=== PATIENT | male | born 1940 | race Caucasian/White ===

== ENCOUNTER 2017-06-17 22:01 | Inpatient (IN) | payer MEDICARE, MEDICAID ==
[~2017-06-17] VITALS: Ht 175.2 cm; Wt 105.7 kg
--- NOTE | ~2017-06-17 | DS ---
[place], [place] DISCHARGE SUMMARY [id number] UNIT #: [id number] ROOM: 311 DOCTOR: DELANO ROLDAN MD BIRTHDATE: [birth year] DOS: 06/25/2017 CHIEF COMPLAINT: "I would like a please." HISTORY OF PRESENT ILLNESS: This is a 76-year-old white male sent to the [facility] from [place] following medical clearance at [facility]. The patient has been increasingly combative, very paranoid and psychotic. He has required both chemical and physical restraint to prevent harm to self and others. The patient has a history of dementia and has been increasingly more confused and resistive to care. He has been yelling out. He has been hitting things and banging on things. When attempted to redirect that, he will strike out. He will hit, kick, spit at staff. He is admitted now to rule out organic factors, to stabilize on medication, returning back to [place] when psychiatrically stable. PAST MEDICAL HISTORY: Remarkable for the history of Alzheimer dementia as well as diabetes, hypertension, GERD and hypothyroidism. SUMMARY OF HOSPITAL COURSE: The patient was admitted to the unit where he was initially started on Depakote as well as Exelon patch and Namenda. The Exelon patch was started at 4.6 mg a day while Namenda was started at 5 mg a day. Both of these were rapidly titrated up to their maximum doses, so the Exelon was gradually brought up to 13.3 mg a day while Namenda was brought to 10 mg twice a day. It became evident that Depakote was ineffective at decreasing his symptomatology. He continued to be paranoid and delusional. He continued to strike out at staff and at others. For this reason, Depakote was ultimately discontinued in lieu of Risperdal M-Tab first at 1 mg twice daily, then at 2 mg twice daily. This medication did seem to impact positively on his behavior as his mood lability lessened, his physical and verbal aggression lessened and his paranoia and delusions also lessened. He did have some mild daytime somnolence with the medication, but this seemed to pass as he got more adjusted to the medication. He had improved sufficiently by June 25 to return back to [place] where he will continue receiving his care. MENTAL STATUS AT DISCHARGE: The patient is alert and oriented to self. Mood does seem to be trending towards euthymia. Affect is much more appropriate. There is no julien or hypomania. There are no auditory or visual hallucinations, delusions or paranoia. Short-term memory remains poor. DISCHARGE DIAGNOSES: 1. Intermittent explosive disorder. 2. Brief psychotic disorder. 3. Alzheimer dementia. PLAN: The patient is to return to [facility] in [place]. His scripts have been printed and will be sent with him. He is medically and psychiatrically stable. His psychosocial needs are being adequately met by the long-term care facility. [place], [place] DISCHARGE SUMMARY [id number] UNIT #: [id number] ROOM: [facility] DOCTOR: DELANO ROLDAN MD BIRTHDATE: [birth year] DELANO ROLDAN MD CM:YONAS [id number] DELANO ROLDAN MD 06/25/17 0906 interface
--- NOTE | ~2017-06-17 | PR ---
[place], [place] PROGRESS NOTE NAME: MICKIE MADDEN UNIT #: [id number] ROOM: 311 DOCTOR: DELANO ROLDAN MD BIRTHDATE: [birth year] DOS: 06/24/2017 CHIEF COMPLAINT: The patient made no sense. SUMMARY OF THE VISIT: The patient was interviewed in the group therapy room where he sat quietly. He was interacting with one of the nurses, who was attempting to start an IV. He was fairly cooperative. He was not hesitant or resistive to care. He was calmer. He still makes little sense when engaged in conversation. On the bright side, he was not banging or yelling or screaming. He does not represent a significant harm to himself or others at the present time. He is tolerating the current medication regimen well. MENTAL STATUS: It is limited due to his inability to form full thoughts and convey a sentence. He was pleasant, however, upon approach. PLAN: At the present time, I will renew his p.r.n. Ativan in case he requires intervention, maintain his current psychotropics, continue to support and monitor, engage in individual and marcum milieu activity with the plan to return to the least restrictive environment when psychiatrically stable. DELANO ROLDAN MD CM:PNTRANS [id number] DELANO ROLDAN MD 06/24/17 0955 interface
--- NOTE | ~2017-06-17 | PR ---
[place], [place] PROGRESS NOTE [facility]: [id number] UNIT #: [id number] ROOM: 311 DOCTOR: DELAON ROLDAN MD BIRTHDATE: [birth year] DOS: 06/21/2017 CHIEF COMPLAINT: The patient was sleeping in his Brenda chair." SUMMARY OF THE VISIT: The patient was sleeping in his Brenda chair. Nurses report he became increasingly agitated and was hitting the top of the tray as well as banging it. He was also attempting to strike out at staff, kick staff, spit on staff. He required p.r.n. intervention, which was successful in decreasing his agitation, but left him residually somnolent. MENTAL STATUS: My mental status examination is limited due to his overall level of somnolence. PLAN: Yesterday, he was yelling in pain through the commercial fisher and did seem to respond after he received his pain medication. I will go ahead and increase the Cymbalta to 60 mg in the morning in an effort to impact positively on pain control. I will also increase his Namenda to 15 mg a day to augment the effectiveness of the Exelon patch in improving and maintaining ADLs, behavior and cognition. I will check a valproic acid level tomorrow in the morning to ensure that it is therapeutic. We will continue to engage in individual and marcum milieu activity with the ultimate plan to return to the least restrictive environment when psychiatrically stable. DELANO ROLDAN MD CM:PNTRANS [id number] DELANO ROLDAN MD 06/21/17 1015 interface
--- NOTE | ~2017-06-17 | PR ---
[place], [place] PROGRESS NOTE NAME: MICKIE MADDEN UNIT #: [id number] ROOM: 311 DOCTOR: DELANO ROLDAN MD BIRTHDATE: [birth year] DOS: 06/22/2017 CHIEF COMPLAINT: "I am ready for lunch." SUMMARY OF THE VISIT: The patient was interviewed as he sat in a Brenda chair. He was agitated prior to me coming in and did calm briefly. He continues to exhibit extreme mood lability and hostility with agitation and pounding on the tray, tables, doors and membreno. He also seems somewhat perplexed when it comes time to eating and does not know how to grasp utensils and feed himself. Staff reports he continues to be episodically noncompliant with his medication. MENTAL STATUS: He is alert and oriented to self only. Mood is labile. Affect is inappropriate. His responses are short and simple and at times inappropriate. He does process slowly and short term memory is exceedingly poor. PLAN: I will go ahead and discontinue Depakote in lieu of Risperdal M-Tab 1 mg twice daily, hoping that this will improve compliance. If he tolerates this, I can go ahead and utilize Risperdal Consta or Invega Sustenna. I will maximize Namenda to 10 mg twice daily, also obtain a dental consult due to his poor oral hygiene, engage in individual and marcum milieu activity, returning to the least restrictive environment when stable. DELANO ROLDAN MD CM:PNTRANS [id number] DELANO ROLDAN MD 06/22/17 1314 interface
--- NOTE | ~2017-06-17 | PR ---
[place], [place] PROGRESS NOTE NAME: [id number] UNIT #: [id number] ROOM: 311 DOCTOR: DELANO ROLDAN MD BIRTHDATE: [birth year] DOS: 06/19/2017 CHIEF COMPLAINT: "Hey, are you a nurse, can you help me up." SUMMARY OF THE VISIT: The patient was interviewed in the dining area where he sat in a Brenda chair, having completed his breakfast. He was watching television, but he stopped and engaged in conversation with me. He was fairly bright and pleasant, very confused, however, he quickly became agitated, but did calm and redirect. Nurses report similar behavior on and off throughout the day. MENTAL STATUS: He is alert and oriented to self, possibly place, but not time. Mood seems labile. Affect inappropriate. There is no julien or hypomania. There are no overt auditory or visual hallucinations. He does process information slowly and his responses tend to be at times, nonsensical. Short term memory is poor. PLAN: Vitamin D level was very low at 8.8. So, I will augment with vitamin D 50,000 international units weekly. I will increase his Namenda from 5 mg a day to 5 mg twice a day. I will check a valproic acid level in the a.m. to ensure that it is therapeutic. We will engage in individual and marcum milieu activity with the plan to return to the least restrictive environment when psychiatrically stable. DELANO ROLDAN MD CM:PNTRANS [id number] DELANO ROLDAN MD 06/19/17 1026 interface
--- NOTE | ~2017-06-17 | CON ---
[place], [place] REPORT OF CONSULTATION NAME: MICKIE MADDEN UNIT #: [id number] ROOM: 311 DOCTOR: ANDREA VALDES DMD BIRTHDATE: [birth year] DOS: REASON FOR CONSULTATION: Dental pain. HISTORY OF PRESENT ILLNESS: On exam, the patient is demented with minimal verbal skills. No swelling noted extraorally. Intraorally generalized poor dentition, extreme dry mouth. Maxillary dentition consists of teeth #2 and 15. Mandibular dentition appears to be teeth #20 through 29, all in extensive disrepair. Root caries noted on all mandibular teeth. The patient appears to be complaining of pain in the lower left quadrant, posterior quadrant, which appears to be from tooth to tissue contact because of no mandibular posterior teeth. The patient is also complaining of pain in the upper anterior, which appears to be either the maxillary frenum or the incisive papilla area, all of which appear to be from mastication over closing and tooth to contact. Recommend full mouth extraction, most likely under general anesthesia. PLAN: The patient is being discharged in the near future, so recommend they find a private dentist and have those procedures performed. ANDREA VALDES DMD CM:CONSTR:REPORT OF CONSULTATION 11 06/24/17 1122 interface
--- NOTE | ~2017-06-17 | PR ---
[place], [place] PROGRESS NOTE NAME: MICKIE MADDEN UNIT #: [id number] ROOM: 311 DOCTOR: DELANO ROLDAN MD BIRTHDATE: [birth year] DOS: 06/20/2017 CHIEF COMPLAINT: "Is it breakfast." SUMMARY OF THE VISIT: The patient was interviewed as he was resting quietly in bed. He awoke with some prompting and did engage in conversation. He was somewhat confused and disjointed. He did request some help in getting up and I did direct nurse's aides his way to help assist him into the dining area. Staff report that overall he remains for the most part pleasantly confused with episodic periods of agitation. He is tolerating the current medication regimen well. MENTAL STATUS: He is alert and oriented to person, not necessarily place, certainly not time. Mood does seem to be trending towards euthymia, but there is still episodic agitation and mood lability. There are no auditory or visual hallucinations, delusions or paranoia. No hypomania or julien. He does process conversation slowly and he has poor short term memory. PLAN: I will maximize the dose of Exelon patch, bringing the dose from 9.5 mg daily to 13.3. Maintain his other psychotropics, continue to engage in individual and marcum milieu activity with the ultimate plan to return to the least restrictive environment when psychiatrically stable. DELANO ROLDAN MD CM:PNTRANS 4 9 DELANO ROLDAN MD 06/20/1728 interface
--- NOTE | ~2017-06-17 | PR ---
[place], [place] PROGRESS NOTE NAME: MICKIE MADDEN UNIT #: [id number] ROOM: 311 DOCTOR: DELANO ROLDAN MD BIRTHDATE: [birth year] DOS: 06/23/2017 CHIEF COMPLAINT: The patient made little to no sense. SUMMARY OF THE VISIT: The patient was interviewed as he was sitting in a Brenda chair in the quiet room. As I approached and attempted to engage him on multiple occasions, for the most part, he talked in gibberish. Finally, after multiple attempts to ask very short simple questions, he did voice no he was not hungry. He continues to show episodic periods of extreme agitation and aggression. He disrobes frequently and requires a lot of support and redirection. He has also required p.r.n. intervention, usually more so in the late afternoon and early evening hours when he sundowns and the behaviors intensify. MENTAL STATUS: It is limited by his lack of inability to cooperate and focus and communicate. PLAN: At this point in time, since he is receiving frequent PRNs, I will increase the Risperdal M-Tab from 1 mg b.i.d. to 2 mg b.i.d., monitor for risks, benefits, monitor for tardive dyskinesia and extrapyramidal symptoms as well as excess sedation and somnolence. Engage in individual and marcum milieu activity, returning to the least restrictive environment when psychiatrically stable. DELANO ROLDAN MD CM:PNTRANS [id number] DELANO ROLDAN MD 06/23/17 1120 interface
--- NOTE | ~2017-06-17 | WRIGHTHP ---
[place], [place] PATIENT HISTORY AND PHYSICAL EXAM NAME: MICKIE MADDEN UNIT #: [id number] ROOM: 311 DOCTOR: DELANO ROLDAN MD BIRTHDATE: [birth year] DOS: 06/18/2017 PSYCHIATRIC EVALUATION CHIEF COMPLAINT: "I would like a pork chop please." HISTORY OF PRESENT ILLNESS: This is a 76-year-old white male sent to the [facility] unit from [place] following medical clearance at [facility]. The patient has been increasingly combative, very paranoid and psychotic, requiring both chemical and physical restraint to prevent him from hurting himself and others. The patient does have dementia at baseline and has become increasingly more confused and resistive to care. He is admitted now to rule out any organic factors to attempt to stabilize on medication with the ultimate plan to return back to [place] or similar facility. PAST MEDICAL HISTORY: Remarkable for Alzheimer's dementia, diabetes, hypertension, GERD, hypothyroidism. MENTAL STATUS: The patient is alert and oriented to self only. He is exceptionally confused. He is not able to string together a full sentence that makes sense. He rambles nonsensically at times. His responses are totally inappropriate to the questions asked of him. He was pleasant, however, ended, not exhibit any agitation directly towards me. Short-term memory is exceedingly poor. DIAGNOSES: Intermittent explosive disorder, brief psychotic disorder and Alzheimer dementia. PLAN: I have already started him on Depakote, but I will increase the dose to 500 mg t.i.d. because he is a rather large man. I will increase his Exelon patch from 4.6 to 9.5 mg a day and augment with Namenda 5 mg a day. We will engage in individual and marcum milieu activity with the plan to return to the least restrictive environment when psychiatrically stable. [place], [place] PATIENT HISTORY AND PHYSICAL EXAM NAME: MICKIE MADDEN UNIT #: [id number] ROOM: 311 DOCTOR: DELANO ROLDAN MD BIRTHDATE: [birth year] DELANO ROLDAN MD CM:HISPHYS:PATIENT HISTORY AND PHYSICAL EXAMINATION [id number] DELANO ROLDAN MD 06/20/17 1316 interface
[2017-06-18] MEDS ORDERED: KEFLEX500 M1 PO (00:13)
[2017-06-18] MEDS ORDERED: COLACE100 MG PO (00:13)
[2017-06-18] MEDS ORDERED: ARICEPT10 M1 PO (00:14)
[2017-06-18] MEDS ORDERED: AMARYL4 MG PO (00:15)
[2017-06-18] MEDS ORDERED: ATIVAN0.5 MG PO (00:17)
[2017-06-18] MEDS ORDERED: SYNTHROID,LEVO88 MCG PO (00:17)
[2017-06-18] MEDS ORDERED: LOPRESSOR25 MG PO (00:18)
[2017-06-18] MEDS ORDERED: VITAMIN AND MI1 EACH PO (00:19)
[2017-06-18] MEDS ORDERED: OMEPRAZOLE MAGN20 MG PO (00:20)
[2017-06-18] MEDS ORDERED: SEROQUEL100 MG PO (00:26)
[2017-06-18 00:42] VITALS: BP 130/82
[2017-06-18 01:32] VITALS: BP 130/82
[2017-06-18] MEDS ORDERED: HUMALOG100 UNIT/1 SQ (02:40)
[2017-06-18] MEDS ORDERED: TYLENOL WITH C1 EACH PO (02:43)
[2017-06-18] MEDS ORDERED: [UNRECOGNIZED DRUG - OTHER] T (02:46)
[2017-06-18 06:38] LABS: BASO # 0.1 10*3/uL (0.0-0.1); BASO % 0.6 % (0.0-1.0); EOS # 0.3 10*3/uL (0.0-0.4); EOS % 2.9 % (1.0-4.0); HEMATOCRIT 41.1 % (42.0-52.0); HEMOGLOBIN 13.6 g/dl (14.0-18.0); LYMPH # 3.4 10*3/uL (1.3-4.4); LYMPH % 33.5 % (27.0-41.0); MEAN CELL VOLUME 95.8 fl (80.0-94.0); MEAN CORPUSCULAR HGB 31.7 pg (27.0-31.0); MEAN CORPUSCULAR HGB CONC 33.1 g/dl (33.0-37.0); MEAN PLATELET VOLUME 10.8 fl (9.6-12.3); MONO # 0.6 10*3/uL (0.1-1.0); NEUT # 5.7 10*3/uL (2.3-7.9); NEUT % 56.8 % (47.0-73.0); PLATELET COUNT AUTOMATED 204 10*3/uL (130-400); RED BLOOD COUNT 4.29 10*6/uL (4.50-5.90); RED CELL DISTRI WIDTH 13.7 % (0-14.5); WHITE BLOOD COUNT 10.1 10*3/uL (4.8-10.8)
[2017-06-18 07:08] LABS: ALKALINE PHOSPHATASE 79 U/L (45-117); BUN 15 mg/dl (7-24); CHLORIDE 107 mmol/L (98-107); CHOLESTEROL 178 mg/dL (<200); CREATININE 0.73 mg/dL (0.70-1.30); HDL CHOLESTEROL 24 mg/dl (40-60); LDL CHOLESTEROL 117 mg/dL (9-159); POTASSIUM 3.6 mmol/L (3.5-5.1); SGOT/AST 26 IU/L (3-35); SGPT/ALT 21 U/L (12-78); SODIUM 140 mmol/L (136-145); TRIGLYCERIDES 187 mg/dl (<150); VLDL CHOLESTEROL 37 mg/dL (6-40)
[2017-06-18 07:33] VITALS: BP 136/80
[2017-06-18 08:34] LABS: VITAMIN D, 25-HYDROXY 8.8 ng/mL (30-100)
[2017-06-18 11:00] LABS: BILIRUBIN 2+ (NEGATIVE); BLOOD 3+ (NEGATIVE); CLARITY SL CLOUDY (CLEAR); COLOR YELLOW (YELLOW); GLUCOSE 2+ (NEGATIVE); KETONE 3+ (NEGATIVE); LEUKO ESTERASE NEGATIVE (NEGATIVE); NITRITE NEGATIVE (NEGATIVE); SPECIFIC GRAVITY >= 1.030 (1.005-1.030); UROBILINOGEN 0.2 E.U./dl (0.2-1.0)
[2017-06-18 11:15] LABS: BACTERIA TRACE; MUCOUS 1+; RBC TNTC rbc/hpf (0-2)
[2017-06-18 20:00] VITALS: BP 128/76
[2017-06-19 08:05] VITALS: BP 129/76
[2017-06-19 20:25] VITALS: BP 132/84
[2017-06-20 07:40] VITALS: BP 132/84
[2017-06-20 19:44] VITALS: BP 142/75
[2017-06-21 07:37] VITALS: BP 136/78
[2017-06-21 21:31] VITALS: BP 126/84
[2017-06-22 08:18] VITALS: BP 125/83
[2017-06-22 12:30] LABS: BASO % 0.1 % (0.0-1.0); EOS % 0.4 % (1.0-4.0); HEMATOCRIT 44.9 % (42.0-52.0); HEMOGLOBIN 14.9 g/dl (14.0-18.0); LYMPH # 2.6 10*3/uL (1.3-4.4); LYMPH % 25.3 % (27.0-41.0); MEAN CELL VOLUME 93.9 fl (80.0-94.0); MEAN CORPUSCULAR HGB 31.2 pg (27.0-31.0); MEAN CORPUSCULAR HGB CONC 33.2 g/dl (33.0-37.0); MEAN PLATELET VOLUME 10.6 fl (9.6-12.3); MONO # 0.5 10*3/uL (0.1-1.0); MONO % 4.9 % (3.0-9.0); NEUT # 7.1 10*3/uL (2.3-7.9); NEUT % 69.1 % (47.0-73.0); PLATELET COUNT AUTOMATED 264 10*3/uL (130-400); RED BLOOD COUNT 4.78 10*6/uL (4.50-5.90); RED CELL DISTRI WIDTH 13.4 % (0-14.5); WHITE BLOOD COUNT 10.3 10*3/uL (4.8-10.8)
[2017-06-22 12:44] LABS: ALBUMIN 3.4 gm/dl (3.1-4.5); ALKALINE PHOSPHATASE 100 U/L (45-117); BUN 17 mg/dl (7-24); CHLORIDE 105 mmol/L (98-107); POTASSIUM 2.9 mmol/L (3.5-5.1); SGOT/AST 45 IU/L (3-35); SGPT/ALT 45 U/L (12-78); SODIUM 139 mmol/L (136-145); TOTAL PROTEIN 8.1 gm/dL (6.4-8.2)
[2017-06-22 23:15] VITALS: BP 123/64
[2017-06-23 07:52] VITALS: BP 134/75
[2017-06-23 20:13] VITALS: BP 105/71
[2017-06-24 01:42] LABS: BASO % 0.4 % (0.0-1.0); EOS # 0.1 10*3/uL (0.0-0.4); EOS % 0.6 % (1.0-4.0); HEMATOCRIT 43.3 % (42.0-52.0); HEMOGLOBIN 14.2 g/dl (14.0-18.0); LYMPH # 3.9 10*3/uL (1.3-4.4); MEAN CELL VOLUME 94.1 fl (80.0-94.0); MEAN CORPUSCULAR HGB 30.9 pg (27.0-31.0); MEAN CORPUSCULAR HGB CONC 32.8 g/dl (33.0-37.0); MEAN PLATELET VOLUME 10.9 fl (9.6-12.3); MONO # 0.8 10*3/uL (0.1-1.0); MONO % 6.8 % (3.0-9.0); NEUT # 6.3 10*3/uL (2.3-7.9); NEUT % 56.9 % (47.0-73.0); PLATELET COUNT AUTOMATED 244 10*3/uL (130-400); RED CELL DISTRI WIDTH 13.8 % (0-14.5); WHITE BLOOD COUNT 11.1 10*3/uL (4.8-10.8)
[2017-06-24 01:58] LABS: ALBUMIN 3.3 gm/dl (3.1-4.5); ALKALINE PHOSPHATASE 90 U/L (45-117); BUN 27 mg/dl (7-24); CHLORIDE 106 mmol/L (98-107); CREATININE 0.95 mg/dL (0.70-1.30); POTASSIUM 3.1 mmol/L (3.5-5.1); SGOT/AST 42 IU/L (3-35); SGPT/ALT 45 U/L (12-78); SODIUM 142 mmol/L (136-145); TOTAL PROTEIN 7.8 gm/dL (6.4-8.2)
[2017-06-24 06:50] LABS: BASO % 0.3 % (0.0-1.0); EOS # 0.1 10*3/uL (0.0-0.4); EOS % 0.5 % (1.0-4.0); HEMATOCRIT 46.5 % (42.0-52.0); HEMOGLOBIN 15.3 g/dl (14.0-18.0); LYMPH # 4.6 10*3/uL (1.3-4.4); LYMPH % 37.2 % (27.0-41.0); MEAN CELL VOLUME 95.1 fl (80.0-94.0); MEAN CORPUSCULAR HGB 31.3 pg (27.0-31.0); MEAN CORPUSCULAR HGB CONC 32.9 g/dl (33.0-37.0); MEAN PLATELET VOLUME 11.1 fl (9.6-12.3); MONO # 0.8 10*3/uL (0.1-1.0); MONO % 6.7 % (3.0-9.0); NEUT # 6.8 10*3/uL (2.3-7.9); PLATELET COUNT AUTOMATED 262 10*3/uL (130-400); RED BLOOD COUNT 4.89 10*6/uL (4.50-5.90); RED CELL DISTRI WIDTH 13.7 % (0-14.5); WHITE BLOOD COUNT 12.3 10*3/uL (4.8-10.8)
[2017-06-24 07:33] LABS: ALKALINE PHOSPHATASE 99 U/L (45-117); BUN 29 mg/dl (7-24); CHLORIDE 104 mmol/L (98-107); POTASSIUM 3.3 mmol/L (3.5-5.1); SGOT/AST 50 IU/L (3-35); SODIUM 140 mmol/L (136-145)
[2017-06-24 07:38] LABS: ALBUMIN 3.4 gm/dl (3.1-4.5); CREATININE 1.06 mg/dL (0.70-1.30); SGPT/ALT 49 U/L (12-78); TOTAL PROTEIN 8.1 gm/dL (6.4-8.2)
[2017-06-24 07:56] VITALS: BP 131/68
[2017-06-24 18:08] LABS: BASO # 0.1 10*3/uL (0.0-0.1); BASO % 0.4 % (0.0-1.0); EOS # 0.1 10*3/uL (0.0-0.4); EOS % 0.7 % (1.0-4.0); HEMOGLOBIN 13.7 g/dl (14.0-18.0); LYMPH # 3.5 10*3/uL (1.3-4.4); LYMPH % 29.1 % (27.0-41.0); MEAN CELL VOLUME 95.2 fl (80.0-94.0); MEAN CORPUSCULAR HGB 31.1 pg (27.0-31.0); MEAN CORPUSCULAR HGB CONC 32.6 g/dl (33.0-37.0); MEAN PLATELET VOLUME 10.8 fl (9.6-12.3); MONO # 0.8 10*3/uL (0.1-1.0); MONO % 6.6 % (3.0-9.0); NEUT # 7.5 10*3/uL (2.3-7.9); NEUT % 62.9 % (47.0-73.0); PLATELET COUNT AUTOMATED 226 10*3/uL (130-400); RED BLOOD COUNT 4.41 10*6/uL (4.50-5.90); RED CELL DISTRI WIDTH 13.7 % (0-14.5)
[2017-06-24 18:25] LABS: ALBUMIN 2.9 gm/dl (3.1-4.5); ALKALINE PHOSPHATASE 81 U/L (45-117); BUN 32 mg/dl (7-24); CHLORIDE 106 mmol/L (98-107); CREATININE 0.98 mg/dL (0.70-1.30); POTASSIUM 3.4 mmol/L (3.5-5.1); SGOT/AST 38 IU/L (3-35); SGPT/ALT 42 U/L (12-78); SODIUM 141 mmol/L (136-145); TOTAL PROTEIN 6.8 gm/dL (6.4-8.2)
[2017-06-24 20:00] VITALS: BP 109/65
[2017-06-25 07:11] LABS: BASO # 0.1 10*3/uL (0.0-0.1); BASO % 0.5 % (0.0-1.0); EOS # 0.1 10*3/uL (0.0-0.4); EOS % 0.7 % (1.0-4.0); HEMOGLOBIN 14.2 g/dl (14.0-18.0); LYMPH # 4.4 10*3/uL (1.3-4.4); LYMPH % 39.8 % (27.0-41.0); MEAN CELL VOLUME 94.8 fl (80.0-94.0); MEAN CORPUSCULAR HGB 32.1 pg (27.0-31.0); MEAN CORPUSCULAR HGB CONC 33.8 g/dl (33.0-37.0); MONO # 0.6 10*3/uL (0.1-1.0); MONO % 5.7 % (3.0-9.0); NEUT # 5.9 10*3/uL (2.3-7.9); PLATELET COUNT AUTOMATED 248 10*3/uL (130-400); RED BLOOD COUNT 4.43 10*6/uL (4.50-5.90); RED CELL DISTRI WIDTH 13.7 % (0-14.5); WHITE BLOOD COUNT 11.1 10*3/uL (4.8-10.8)
[2017-06-25 07:22] LABS: BUN 28 mg/dl (7-24); CHLORIDE 105 mmol/L (98-107); CREATININE 0.91 mg/dL (0.70-1.30); POTASSIUM 3.4 mmol/L (3.5-5.1); SODIUM 141 mmol/L (136-145)
[2017-06-25] MEDS ORDERED: RISPERIDONE M-TA1 MG BC (07:37)
[2017-06-25] MEDS ORDERED: EXELON13.3 MG/21 T (07:37)
[2017-06-25] MEDS ORDERED: MEMANTINE HCL10 MG PO (07:37)
[2017-06-25] MEDS ORDERED: DULOXETINE HCL60 MG PO (07:37)
[2017-06-25] MEDS ORDERED: Nystatin Cream15 GM T (07:59)
[2017-06-25] MEDS ORDERED: VITAMIN D50000 UNIT PO (07:59)
[2017-06-25 08:06] VITALS: BP 129/84
== END 2017-06-25 11:28 | disposition other institution (70) | DRG 883 ==
LOC: 3N 22:01
PROVIDERS: Internal Medicine; Internal Medicine Hospice and Palliative Medicine; Psychiatry & Neurology Psychiatry; Registered Nurse
DX: F63.81 Intermittent explosive disorder (principal); E11.9 Type 2 diabetes mellitus without complications; D53.9 Nutritional anemia, unspecified; G30.9 Alzheimer's disease, unspecified; F02.81 Dementia in other diseases classified elsewhere, unspecified severity, with behavioral disturbance; F23 Brief psychotic disorder; E03.9 Hypothyroidism, unspecified; N39.0 Urinary tract infection, site not specified; I10 Essential (primary) hypertension; L30.8 Other specified dermatitis; K21.9 Gastro-esophageal reflux disease without esophagitis; K08.89 Other specified disorders of teeth and supporting structures; Z90.49 Acquired absence of other specified parts of digestive tract; Z98.42 Cataract extraction status, left eye; Z98.41 Cataract extraction status, right eye; Z82.3 Family history of stroke; Z82.49 Family history of ischemic heart disease and other diseases of the circulatory system; Z83.511 Family history of glaucoma; Z79.4 Long term (current) use of insulin